=== PATIENT | male | born 1940 | race Caucasian/White ===

== ENCOUNTER 2018-03-16 09:17 | Day surgery (SDC) | payer MEDICARE, OTHER ==
[~2018-03-16 09:17] MED LIST: Cefuroxime 10 MG/ML SYRINGE EYELF SCH; Lidocaine 1% PF 2 ML SDV INJECT SCH; Pilocarpine 4% Ophth Soln 15 ML Bot EYELF SCH
[2018-03-16] MEDS: Polymyxin B/Trimethoprim 10 ML Bottle EYELF SCH ×3 (10:39→12:15)
[2018-03-16] MEDS: Brimonidine 0.2% Ophth Soln 5 ML Bottle EYELF SCH ×3 (10:44→12:15)
[2018-03-16] MEDS: Phenylephrine 2.5% Ophth Soln 2 ML Bot EYELF SCH ×5 (10:49→11:54)
--- NOTE | 2018-03-16 10:50 | PCM.PREANE ---
Preanesthetic Assessment - Anesthesia/Transfusion/Family Hx Anesthesia History: Prior Anesthesia Without Reaction Family History of Anesthesia Reaction: No Transfusion History: Unknown - Review of Systems General: No Symptoms Pulmonary: No Symptoms Cardiovascular: No Symptoms Gastrointestinal: No Symptoms Neurological: Numbness (feet), Tingling (fee) Other: Reports: None - Physical Assessment NPO Status Date: 03/15/18 NPO Status Time: 22:30 Pulse: 74 O2 Sat by Pulse Oximetry: 95 Respiratory Rate: 16 Blood Pressure: 159/89 Temperature: 36.7 C Vital Signs: Last Vital Signs Temp 36.7 C 03/16/18 10:25 Pulse 74 03/16/18 10:25 Resp 16 03/16/18 10:25 BP 159/89 H 03/16/18 10:25 Pulse Ox 95 03/16/18 10:25 Height: 1.83 m Weight: 117.934 kg ASA Class: 2 Mental Status: Alert & Oriented x3 Airway Class: Mallampati = 2 Dentition: Reports: Normal Dentition, Caries Thyro-Mental Finger Breadths: 3 Mouth Opening Finger Breadths: 3 ROM/Head Extension: Full Lungs: Clear to Auscultation, Normal Respiratory Effort Cardiovascular: Regular Rate, Regular Rhythm - Allergies Allergies/Adverse Reactions: Allergies Allergy/AdvReac Type Severity Reaction Status Date / Time No Known Allergies Allergy Verified 03/15/18 15:04 - Blood Blood Available: No Product(s) Available: None - Anesthesia Plan Pre-Op Medication Ordered: None - Acknowledgements Anesthesia Type Planned: MAC Pt an Appropriate Candidate for the Planned Anesthesia: Yes Alternatives and Risks of Anesthesia Discussed w Pt/Guardian: Yes Pt/Guardian Understands and Agrees with Anesthesia Plan: Yes PreAnesthesia Questionnaire - SUBSTANCE USE Smoking Status *Q: Former Smoker Tobacco Use Within Last Twelve Months: No Second Hand Smoke Exposure: No Days Per Week of Alcohol Use: 0 Number of Drinks Per Day: 0 Total Drinks Per Week: 0 Recreational Drug Use History: No - HOME MEDS Home Medications: Home Meds Carvedilol [Coreg] 6.25 mg PO BID 03/15/18 [History] Furosemide 40 mg PO DAILY 03/15/18 [History] Lutein 20 mg PO DAILY 03/15/18 [History] Omeprazole 20 mg PO DAILY 03/15/18 [History] Potassium Chloride [Klor-Con M20] 20 meq PO DAILY 03/15/18 [History] Telmisartan/Hydrochlorothiazid [Micardis Hct 40-12.5 mg Tablet] 1 tab PO DAILY 03/15/18 [History] Warfarin Sodium 5 mg PO Q48H 03/15/18 [History] Warfarin Sodium 6 mg PO Q48H 03/15/18 [History] - CURRENT (IN HOUSE) MEDS Current Meds: Current Medications Brimonidine Tartrate (Alphagan 0.2% Ophth Soln) 0 ml EYELF ASDIRECTED NAVJOT Stop: 03/16/18 18:00 Last Admin: 03/16/18 10:44 Dose: 1 drop Cefuroxime Sodium (Zinacef) 0 mg EYELF ASDIRECTED NAVJOT Stop: 03/16/18 18:00 Lidocaine HCl (Xylocaine-Mpf 1%) 0 ml INJECT ASDIRECTED NAVJOT Stop: 03/16/18 18:00 Phenylephrine HCl (Marvin-Synephrine 2.5% Ophth Soln) 0 ml EYELF ASDIRECTED NAVJOT Stop: 03/16/18 18:00 Pilocarpine HCl (Pilocar 4% Ophth Soln) 0 ml EYELF ASDIRECTED NAVJOT Stop: 03/16/18 18:00 Polymyxin/Trimethoprim Sulfate (Polytrim Ophth Soln) 0 ml EYELF ASDIRECTED NAVJOT Stop: 03/16/18 18:00 Last Admin: 03/16/18 10:39 Dose: 1 drop Tetracaine HCl (Tetracaine 0.5% Steri-Unit Claudia) 0 ml EYELF ASDIRECTED NAVJOT Stop: 03/16/18 18:00 Tropicamide (Mydriacyl 1% Ophth Soln) 0 ml EYELF ASDIRECTED NAVJOT Stop: 03/16/18 18:00 Discontinued Medications Tropicamide (Mydriacyl 1% Ophth Soln) 0 ml EYELF ASDIRECTED NAVJOT Stop: 03/16/18 18:00
[2018-03-16] MEDS: Tropicamide 1% Ophth Soln 3 ML Bottle EYELF SCH ×4 (10:55→11:38)
[2018-03-16] MEDS: Tetracaine HCl/PF 0.5% 4 ML Bottle EYELF SCH ×2 (11:42→12:03)
--- NOTE | 2018-03-16 12:19 | PCM48HPAN ---
Post Anesthesia Note - EVALUATION WITHIN 48HRS OF ANESTHETIC Vital Signs in Normal Range: Yes Patient Participated in Evaluation: Yes Respiratory Function Stable: Yes Airway Patent: Yes Cardiovascular Function Stable: Yes Hydration Status Stable: Yes Pain Control Satisfactory: Yes Nausea and Vomiting Control Satisfactory: Yes Mental Status Recovered: Yes Pulse Rate: 74 Resp Rate: 16 Temperature: 36.7 C Blood Pressure: 159/89
== END 2018-03-16 12:24 | disposition home or self-care (01) ==
LOC: JD.SDS 09:17
PROVIDERS: ATTEND Ophthalmology
DX: H25.812 Combined forms of age-related cataract, left eye (principal); H40.003 Preglaucoma, unspecified, bilateral; H02.831 Dermatochalasis of right upper eyelid; H02.834 Dermatochalasis of left upper eyelid; I10 Essential (primary) hypertension; I48.91 Unspecified atrial fibrillation; C61 Malignant neoplasm of prostate; Z79.899 Other long term (current) drug therapy; Z98.41 Cataract extraction status, right eye; Z96.1 Presence of intraocular lens; Z95.5 Presence of coronary angioplasty implant and graft; Z98.890 Other specified postprocedural states; Z87.891 Personal history of nicotine dependence; Z83.518 Family history of other specified eye disorder
CPT/HCPCS: A9270-GY; C1780; J0697; J2001